=== PATIENT | female | born 2000 ===

== ENCOUNTER 2021-02-03 10:17 | Emergency (ER) | payer OTHER ==
[~2021-02-03] VITALS: Ht 172.7 cm; Wt 99.8 kg
[2021-02-03] MEDS ORDERED: MORPHINE SULFATE 4 MG/ML SYR/VIAL IM ONE (12:45)
[2021-02-03] MEDS ORDERED: ONDANSETRON ODT 4 MG TAB PO ONE (12:45)
[2021-02-03 13:21] VITALS: BP 138/63
== END 2021-02-03 13:57 | disposition home or self-care (01) ==
LOC: ER 10:17
DX: S82.842A Displaced bimalleolar fracture of left lower leg, initial encounter for closed fracture (principal); W01.0XXA Fall on same level from slipping, tripping and stumbling without subsequent striking against object, initial encounter; Y93.89 Activity, other specified; Y92.89 Other specified places as the place of occurrence of the external cause; Y99.8 Other external cause status
CPT/HCPCS: 73610; 96372; 99283; J2270; Q0162